=== PATIENT | female | born 1950 | race African-American/Black ===

== ENCOUNTER → 2017-02-21 | Outpatient (CLI) | payer BC, MEDICARE ==
--- NOTE | 2017-02-21 12:41 | RAD ---
PROCEDURE MRI lumbar spine without contrast. HISTORY Low back pain and bilateral radiculopathy for 7 months, symptoms greater on the left. No known injury or prior surgery. TECHNIQUE Sagittal T1, sagittal T2, sagittal STIR, axial T1, and axial T2 sequences are provided. COMPARISON October 12, 2014. FINDINGS There is 3 millimeters of anterolisthesis at L3-L4 and 4 millimeters at L4-L5. There is mild marrow heterogeneity but no discrete worrisome marrow lesion. There is probably a hemangioma at L4. There is disc desiccation from L2-L3 through L5-S1. The conus medullaris is normal in signal intensity and in position. Subcutaneous edema is mild. The numbering system assumes 5 lumbar type vertebral bodies. Findings by individual level are as follows: L1-L2: There is no canal or foraminal compromise. L2-L3: There is a mild disc bulge and marked facet hypertrophy. Midline AP diameter of the thecal sac is narrowed to 7-8 millimeters. There is lateral recess narrowing, greater on the right. Foraminal narrowing is moderate on the right and mild to moderate on the left. L3-L4: In addition to the anterolisthesis there is a diffuse disc bulge and there is facet hypertrophy. There is ligamentum flavum hypertrophy on the right. Canal stenosis is noted, midline AP diameter of the thecal sac 6-7 millimeters. Lateral recess narrowing is bilateral, greater on the right. Foraminal narrowing is moderate. Spur on the left contacts the exiting nerve root. L4-L5: There is marked facet hypertrophy and there is ligamentum flavum hypertrophy. In addition to the anterolisthesis midline AP diameter of the thecal sac is narrowed to 8 millimeters. There is lateral recess narrowing, greater on the right. Foraminal narrowing is [id number]. L5-S1: Disc osteophyte complex and facet hypertrophy are noted, without canal or foraminal compromise. IMPRESSION Degenerative changes in the lumbar spine with canal stenosis greatest at L3-L4. Several levels of moderate foraminal narrowing. Electronically signed by: Jw Ritter MD (Feb 21, 2017 12:39:56)
== END | disposition home or self-care (01) ==
LOC: MRI 10:15
PROVIDERS: ATTEND Orthopaedic Surgery
DX: M48.06 Spinal stenosis, lumbar region (principal); M43.16 Spondylolisthesis, lumbar region; M47.816 Spondylosis without myelopathy or radiculopathy, lumbar region; E11.9 Type 2 diabetes mellitus without complications
CPT/HCPCS: 72148

== ENCOUNTER → 2017-03-15 | Outpatient (CLI) | payer MEDICARE, OTHER ==
[~2017-03-15] MED LIST: AMLO10TA2 PO; CRESTOR10 MG PO; IOHEXOL 180 MG/ML 10 ML VIAL. ONE; MELO-150 PO; NAPR220C4 PO; methylPREDNISolone ACETATE 40 MG/ML VIAL. ONE; methylPREDNISolone ACETATE 80 MG/ML VIAL. ONE
--- NOTE | 2017-03-16 00:46 | PAIN ---
DATE OF SERVICE: 03/15/2017 INITIAL CONSULTATION FOR PAIN CLINIC CHIEF COMPLAINT: Low back and bilateral lower extremity pain. HISTORY OF PRESENT ILLNESS: This is a 67-year-old female who presents with history of pain in low back, bilateral lower extremities, worse on the left than the right for about 2 years, increased over the past 3-4 months, worse with activity, standing, walking. Pain across the low back, again worse on the left side radiating to the posterior gluteus, posterior thighs, into the calves bilaterally, it is a constant pain, it is cramping and aching. The patient reports that it started gradually, was not a result of any specific injury or accident that she is aware of. This has been going on for about 2 years now, getting worse over the past few months. The patient reports it awakens her from sleep at least 2-3 times at night, does not affect her bowel or bladder control, but does affect her ability to walk. She has been using a cane mostly in her left hand when ambulating. The patient has tried physical therapy. She is also doing some exercises which she is currently doing. She has tried etodolac as well as meloxicam, which both have helped the pain by about 20%, but not completely relieved. The patient continues to do therapy once again with exercises at home. She did have an MRI scan of the lumbar spine dated 02/21/2017 showing L3-L4 with ligamentum flavum hypertrophy, canal stenosis noted with midline AP diameter of thecal sac at 6-7 mm, lateral recess narrowing bilaterally, greater on the right; foraminal narrowing moderate. L4-L5 shows marked facet hypertrophy and AP diameter of the thecal sac ____ 8 mm with lateral recess narrowing greater on the right, foraminal narrowing mild to moderate, L5-S1 shows disk osteophyte complex and facet hypertrophy without canal or foraminal compromise at that level. The patient reports no loss of motor function, but significant pain in the low back, especially in the lower extremities, again worse on the left than the right. The pain is worse with standing, walking, changing positions from sitting. Sitting seems to help the pain as is lying down, but there is still when she lies on her left side, awakens her from sleep at night as noted. PAST MEDICAL HISTORY: Significant for hypertension, diabetes which is diet controlled, history of blood clots in 2014, arthritis. PREVIOUS SURGERY: Include hysterectomy in 1977 and cholecystectomy, ovarian cystectomy, right knee surgery and left hip surgery in the past. CURRENT MEDICATIONS: Include naproxen, amlodipine, Crestor, and meloxicam. ALLERGIES: No known drug allergies. FAMILY HISTORY: Significant for arthritis and heart disease. SOCIAL HISTORY: The patient is , has one child, lives at home. Does not drink alcohol, does not smoke and lives locally in [place], [place]. REVIEW OF SYSTEMS: The patient's review of systems is positive for those items mentioned in history of present illness. All systems reviewed and otherwise negative. It is complete, full and well documented on the patient's chart. PHYSICAL EXAMINATION: VITAL SIGNS: Today, the patient's blood pressure 149/80, pulse 77, respirations 18, temperature 98.4 degrees Fahrenheit. Height is 5 feet 7 inches, weighs 260 pounds. GENERAL: The patient is awake, alert, oriented, appropriate, very pleasant demeanor. HEENT: Head shows normocephalic, atraumatic. Extraocular movements are intact and symmetrical. Oral cavity shows mucous membranes moist and pink. Dentition is intact. NECK: Shows anterior throat supple without palpable lymphadenopathy noted. Swallow reflex is symmetrical. Neck shows full rotational motion of cervical spine, both laterally greater than 45 degrees, closer to 90 degrees right and left lateral as well as full extension and full forward flexion without difficulty or pain reported. CHEST: Shows normal on inspection. Breath sounds are clear to auscultation bilaterally. HEART: Shows S1 and S2 clear. No murmurs are auscultated. ABDOMEN: Soft, nontender, nondistended. No palpable organomegaly is noted. No rebound or guarding demonstrated. BACK: Shows spine grossly in midline with normal appearing thoracic and lumbar lordotic curvatures. No previous bruises, lesions, rashes or scars are noted. With inspection lumbar paraspinous muscle shows symmetrical. With palpation shows some moderate tenderness with palpation in the middle and lower distribution of paraspinous muscles, but without radiation. No tenderness over the spinous processes. No tenderness over the sacrum or sacroiliac regions bilaterally. LOWER EXTREMITIES: Show deep tendon reflexes at 1+ in the patellar and tendo calcaneus tendons are equal. Motor exam is approximately 4 on a scale of 5 with dorsiflexion, extension, quadriceps and hamstring flexion, but is symmetrical and equal bilaterally. Peripheral pulses are 1+ posterior tibial and dorsalis pedis pulses. No peripheral edema is noted. No clubbing, no cyanosis. Lower extremities are warm and dry to touch, equal in color and appearance. Straight leg raise noted to be negative for reproduction of radicular symptoms to 45 degrees bilaterally. Gaenslen's and Pavel's maneuvers are negative for reproduction of pain bilaterally as well. The patient is able to stand, stand on her toes without significant difficulty or loss of balance, walking with a normal appearing gait, not using any assistive devices to ambulate currently. Again, the patient occasionally has a cane that she uses when she is going further distances, but does not need this today. IMPRESSION: 1. This is a 67-year-old female with approximately 2-year history of increasing low back, bilateral lower extremity pain, worse on the left than the right, worse over the past several months. 2. MRI scan of lumbar spine as noted. 3. History of hypertension. 4. Borderline diabetes. 5. History of arthritis. PLAN: Options were discussed with the patient including conservative medical management, physical therapy, interventional techniques and she would like to pursue interventional techniques since she is doing some current exercises and stretching and has had some therapy in the past. We discussed the lumbar epidural steroid injection using description as well as anatomical models to describe the procedure. Risks were then discussed including, but not limited to bleeding, infection, possibility of epidural hematoma and subsequent neurologic compromise, dural puncture, headaches, spinal cord and/or nerve damage, side effects of steroid medications and poor results regarding pain control. The patient understands and wishes to proceed. The patient will return to clinic in approximately 2 weeks for followup, was counseled on return appointment, activity level and side effects to be aware of. DIAGNOSES: Lumbar radiculopathy with lumbar degenerative disk disease. PROCEDURE: Lumbar epidural steroid injection, translaminar approach at the L4-L5 level using C-arm fluoroscopic guidance under sterile prep and drape using local anesthetic. MEDICATIONS INJECTED: A 120 mg of Depo-Medrol plus 10 mL of preservative-free normal saline and 2 mL of Isovue for contrast. CONDITION AT DISCHARGE: Stable. The patient tolerated procedure well, had no complications. JOSE ANTONIO AMBROCIO MD DR: Irma JOB#: [id number] / [id number]
== END | disposition home or self-care (01) ==
LOC: PNCL 07:35
PROVIDERS: ATTEND Anesthesiology
DX: M51.16 Intervertebral disc disorders with radiculopathy, lumbar region (principal); M19.90 Unspecified osteoarthritis, unspecified site; I10 Essential (primary) hypertension
CPT/HCPCS: 62323; J1030; J1040

== ENCOUNTER → 2017-05-23 | Outpatient (CLI) | payer MEDICARE ==
[~2017-05-23] MED LIST changes: -MELO-150 PO; +MELO15TA23 PO
== END | disposition home or self-care (01) ==
LOC: PNCL 08:58
PROVIDERS: ATTEND Anesthesiology
DX: M51.16 Intervertebral disc disorders with radiculopathy, lumbar region (principal); M19.90 Unspecified osteoarthritis, unspecified site; I10 Essential (primary) hypertension; E11.9 Type 2 diabetes mellitus without complications; Z90.710 Acquired absence of both cervix and uterus; Z90.49 Acquired absence of other specified parts of digestive tract
CPT/HCPCS: 62323; J1030; J1040

== ENCOUNTER → 2017-06-20 | Outpatient (CLI) | payer MEDICARE ==
--- NOTE | 2017-06-20 11:26 | PAIN ---
DATE OF SERVICE: 06/20/2017 DIAGNOSES: Lumbar radiculopathy with lumbar degenerative disk disease. HISTORY OF PRESENT ILLNESS: The patient is a 67-year-old female who returns for followup status post lumbar epidural steroid injection x 2. The patient reports approximately 80% improvement after the second injection, but it did not last as long as the first injection did; first injection lasted a couple of months, this one lasted only one month. The patient reports the pain is increasing down in the low back, bilateral lower extremities; worse on the left than the right in the back, but equal in legs. The patient reports this is worse when walking. It can be sharp, cramping, rates as 8 on a scale of 10 at its worst, 5 at its average, and 4 at its least. The patient reports as a 4 on a scale of 10 today. The patient reports it does not awaken her from sleep; however, she feels much better with lying down or sitting down, has not started physical therapy; however, we discussed this and we will get that ordered for her. The patient reports no new motor or sensory deficits, no new bowel or bladder incontinence or other complaints. PHYSICAL EXAMINATION: VITAL SIGNS: The patient's blood pressure is 150/93, pulse 91, respirations are 18, temperature is 98.5 degrees Fahrenheit, height is 5 feet 7 inches, weighs 253 pounds. GENERAL: The patient is awake, alert, oriented, appropriate, very pleasant demeanor. HEENT: Head shows normocephalic, atraumatic. Extraocular movements intact, symmetrical. Oral cavity, mucous membranes are moist and pink. Dentition is intact. NECK: Shows anterior throat supple without palpable lymphadenopathy noted. Swallow reflex is symmetrical. CHEST: Shows normal on inspection. Breath sounds are clear to auscultation bilaterally. HEART: Shows S1 and S2 clear. ABDOMEN: Obese, soft, nontender, nondistended. BACK: Shows spine grossly midline. Lumbar paraspinous muscle shows symmetrical on inspection with palpation, shows some moderate tenderness, but only diffusely. No lower lumbar distribution bilaterally and is symmetrical. EXTREMITIES: Lower extremities showed deep tendon reflexes 1+ in the patellar and tendo calcaneus tendons. Motor exam is approximately 4 on a scale of 5, but equal and symmetrical with dorsiflexion, extension, quadriceps, and hamstring flexion bilaterally. PLAN: Options were discussed with the patient and the patient's old chart was reviewed. Her current medication regimen updated. Current review of systems updated today as well. We will proceed with the lumbar epidural steroid injections, third in the series, with fluoroscopic guidance. Risks were again discussed including, but not limited to bleeding, infection, possibility of epidural hematoma and subsequent neurologic compromise, dural puncture, headaches, spinal cord and/or nerve damage, side effects of steroid medication and poor results regarding pain control. The patient understands and wishes to proceed. The patient will return to clinic in approximately 2 weeks for followup, was counseled on return appointment, activity level and side effects to be aware of. DIAGNOSIS: Lumbar radiculopathy with lumbar degenerative disk disease. PROCEDURES: Lumbar epidural steroid injection in translaminar approach at L4-L5 level using C-arm fluoroscopic guidance, under sterile prep and drape using local anesthetic. MEDICATION INJECTED: A total of 120 mg Depo-Medrol plus 10 mL of preservative-free normal saline and 2 mL Isovue for contrast. CONDITION AT DISCHARGE: Stable. The patient tolerated procedure well, had no complications. JOSE ANTONIO AMBROCIO MD DR: JUSTICE/scar JOB#: [id number] / [id number]
== END | disposition home or self-care (01) ==
LOC: PNCL 09:08
PROVIDERS: ATTEND Anesthesiology
DX: M51.16 Intervertebral disc disorders with radiculopathy, lumbar region (principal)
CPT/HCPCS: 62323; J1030; J1040

== ENCOUNTER 2020-04-23 15:31 | Observation (INO) | payer OTHER, MEDICARE ==
[~2020-04-23] VITALS: Ht 170.2 cm; Wt 113.0 kg
[~2020-04-23 15:31] MED LIST changes: -AMLO10TA2 PO; +AMLO10TA8 PO; -IOHEXOL 180 MG/ML 10 ML VIAL. ONE; -methylPREDNISolone ACETATE 40 MG/ML VIAL. ONE; -methylPREDNISolone ACETATE 80 MG/ML VIAL. ONE
[2020-04-23] MEDS ORDERED: diazePAM 2 MG TABLET PO ONE (16:00)
--- NOTE | 2020-04-23 16:30 | RAD ---
Right elbow 2 views. HISTORY: Pain 2 views were taken of the right elbow. There is osteoarthritis at the elbow with joint space narrowing. There is a probable joint body anterior to the joint. There is hypertrophic spurring. There is no acute fracture. There is possible calcific tendinitis adjacent to the medial distal humerus. IMPRESSION: 1. Osteoarthritis right elbow. Electronically signed by: Marco Antonio Miller MD (04/23/2020 4:27 PM) [id number]
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
[2020-04-23] MEDS ORDERED: oxyCODONE/APAP 5/325 1 TAB TABLET PO ONE (17:30)
[2020-04-23 18:04] LABS: BILIRUBIN,URINE NEGATIVE (NEG); CLARITY,URINE CLEAR; COLOR,URINE YELLOW; NITRITE,URINE NEGATIVE (NEG); PROTEIN,URINE NEGATIVE (NEG-TRACE); UROBILINOGEN,URINE 0.2 mg/dL (0.2 mg/dL)
[2020-04-23 18:12] LABS: BACTERIA,URINE 0 /HPF (0-FEW); RBC,URINE 0 /HPF (0-2); SQUAMOUS EPITHELIAL CELL,UR MOD /LPF; WBC,URINE OCC /HPF (0-4)
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
[2020-04-23 18:39] LABS: BASO % 0 % (0-3); EOS # 0.1 x10^3/uL (0.0-0.7); EOS % 2 % (0-3); HEMATOCRIT 45.2 % (36.0-47.0); HEMOGLOBIN 15.1 g/dL (12.0-15.5); LYMPH # 2.4 x10^3/uL (1.0-4.8); LYMPH % 30 % (24-48); MEAN CORPUSCULAR HEMOGLOBIN 30 pg (25-35); MEAN CORPUSCULAR HGB CONC 33 g/dL (31-37); MEAN CORPUSCULAR VOLUME 89 fL (79-100); MONO # 0.4 x10^3/uL (0.0-1.1); MONO % 5 % (0-9); NEUT # 4.9 x10^3/uL (1.8-7.7); NEUT % 62 % (31-73); PLATELET COUNT 281 x10^3/uL (140-400); RED BLOOD COUNT 5.09 x10^6/uL (3.50-5.40); RED CELL DISTRIBUTION WIDTH 14.1 % (11.5-14.5); WHITE BLOOD COUNT 7.9 x10^3/uL (4.0-11.0)
[2020-04-23 18:53] LABS: CALCIUM 9.1 mg/dL (8.5-10.1); CREATININE 0.9 mg/dL (0.6-1.0); GFR 75.3; POTASSIUM 3.7 mmol/L (3.5-5.1)
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
[2020-04-23 20:13] VITALS: BP 143/73
--- NOTE | 2020-04-23 20:15 | NUR ---
Call placed to Dr. Scott regarding orders.
[2020-04-23] MEDS ORDERED: oxyCODONE/APAP 5/325 1 TAB TABLET PO PRN (21:45)
[2020-04-23] MEDS ORDERED: ENOXAPARIN 40 MG/0.4 ML SYRINGE. SQ SCH (22:00)
[2020-04-23] MEDS ORDERED: ATORVASTATIN CALCIUM 40 MG TABLET. PO SCH (22:00)
[2020-04-23] MEDS ORDERED: IV NORMAL SALINE 1000ML BAG 1,000 ML IV SCH (22:00)
[2020-04-23] MEDS: NAPROXEN 250 MG TABLET PO SCH (22:20)
[2020-04-23] MEDS: oxyCODONE/APAP 5/325 1 TAB TABLET PO PRN (22:20)
[2020-04-23 23:00] VITALS: BP 137/54
[2020-04-24 03:02] VITALS: BP 128/67
[2020-04-24 07:25] VITALS: BP 135/68
--- NOTE | 2020-04-24 07:27 | NUR ---
Consult called to Dr. Damon's service at [phone]. Message left with Jeimy at service who stated she would notify Jenniffer GUNDERSON.
--- NOTE | 2020-04-24 07:30 | NUR ---
Call returned from Jenniffer GUNDERSON who spoke with ER doctor and stated Per xray results there would be nothing that they would do. Report given to Nisha ROONEY.
[2020-04-24] MEDS: NAPROXEN 250 MG TABLET PO SCH (08:40)
[2020-04-24] MEDS: oxyCODONE/APAP 5/325 1 TAB TABLET PO PRN ×2 (08:57→13:07)
[2020-04-24] MEDS ORDERED: amLODIPine BESYLATE 10 MG TABLET PO SCH (09:00)
[2020-04-24 10:40] VITALS: BP 154/84
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
== END 2020-04-24 13:30 | disposition home or self-care (01) ==
LOC: ER 15:31 → 4 NORTH 18:25
PROVIDERS: ADMIT Internal Medicine; ATTEND Internal Medicine
DX: S32.019A Unspecified fracture of first lumbar vertebra, initial encounter for closed fracture (principal); S32.029A Unspecified fracture of second lumbar vertebra, initial encounter for closed fracture; S32.039A Unspecified fracture of third lumbar vertebra, initial encounter for closed fracture; M25.562 Pain in left knee; M25.521 Pain in right elbow; E11.9 Type 2 diabetes mellitus without complications; E78.00 Pure hypercholesterolemia, unspecified; E78.5 Hyperlipidemia, unspecified; I10 Essential (primary) hypertension; Z96.659 Presence of unspecified artificial knee joint; Z96.641 Presence of right artificial hip joint; V89.2XXA Person injured in unspecified motor-vehicle accident, traffic, initial encounter; Y93.89 Activity, other specified; Y92.410 Unspecified street and highway as the place of occurrence of the external cause; Y99.8 Other external cause status
CPT/HCPCS: 36415; 72131; 73070; 73564; 80048; 81001; 85025; 96372; 97161; 97530; 99284; G0378; J1650; J7030; G0379

== ENCOUNTER → 2020-08-02 | Outpatient (CLI) | payer OTHER, MEDICARE ==
[~2020-08-02] MED LIST changes: +HYDR-2761 PO; +IOHEXOL 180 MG/ML 10 ML VIAL. ONE; +METF500T16 PO; +methylPREDNISolone ACETATE 40 MG/ML VIAL. ONE; +methylPREDNISolone ACETATE 80 MG/ML VIAL. ONE
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
== END | disposition home or self-care (01) ==
LOC: PNCL 09:48
PROVIDERS: ATTEND Anesthesiology
DX: M51.36 Other intervertebral disc degeneration, lumbar region (principal); E11.9 Type 2 diabetes mellitus without complications; I10 Essential (primary) hypertension; M19.90 Unspecified osteoarthritis, unspecified site; Z79.84 Long term (current) use of oral hypoglycemic drugs; Z83.3 Family history of diabetes mellitus; Z79.899 Other long term (current) drug therapy; Z90.710 Acquired absence of both cervix and uterus; Z96.652 Presence of left artificial knee joint; Z96.642 Presence of left artificial hip joint
CPT/HCPCS: 62323; J1030; J1040; Q9965

== ENCOUNTER → 2020-08-18 | Outpatient (CLI) | payer OTHER, MEDICARE ==
[~2020-08-18] MED LIST changes: +AMLO-187 PO; -AMLO10TA8 PO; -IOHEXOL 180 MG/ML 10 ML VIAL. ONE; -methylPREDNISolone ACETATE 40 MG/ML VIAL. ONE; -methylPREDNISolone ACETATE 80 MG/ML VIAL. ONE
--- NOTE | 2020-08-18 11:52 | PDOC ---
Progress Note - Pain Clinic Date of Service: DOS: DATE: 08/18/20 TIME: 11:49 Diagnosis: Dx: Lumbar radiculopathy with lumbar degenerative disc disease History or Present Illness: HPI: 70-year-old female returns for follow-up status post lumbar epidural steroid action x1. Patient reports about 65% improvement in her low back and left lower extremity pain still pain in the leg and noticeable but much better with walking standing changing positions patient is been increase her distance walking doing household activities with greater ease and comfort sleeping much better comfort as well. Patient reports the pain is now just aching radiating the posterior gluteus posterior lateral thigh lateral anterior thigh on the left side only and again only intermittently and not present at all times like it was previously. Patient rates her pain as a 5 on a scale 10 is worst when she is walking 4-5 an average 3 in the mornings at its least and is a 4 today. Patient reports no new motor or sensory deficits no new bowel or bladder incontinence or other complaints. Physical Exam: VS: Blood pressure is 149/92 pulse 83 respirations 18 temperature 90.5 F weight is 238 pounds PE: PHYSICAL EXAMINATION: GENERAL: The patient is awake, alert, oriented, appropriate, very pleasant demeanor HEENT: Shows normocephalic, atraumatic. Extraocular movements are intact and s ymmetrical. Oral cavity: Mucous membranes moist and pink. NECK: Shows anterior throat supple without palpable lymphadenopathy noted. Swallow reflex symmetrical. CHEST: Shows normal on inspection. Breath sounds are clear bilaterally. HEART: Shows S1, S2 clear. No murmurs auscultated. ABDOMEN: Soft, nontender, nondistended, obese. No palpable organomegaly is noted. No rebound or guarding demonstrated. BACK: Shows spine grossly in the midline. Normal-appearing cervical lordotic curvature. There is slightly increased thoracic kyphosis, some minor flattening of the lumbar lordotic curvature. Lumbar paraspinous muscles show symmetrical on inspection, on palpation shows some moderate tenderness diffusely throughout the upper, middle and lower distribution of the paraspinous muscles bilaterally, without specific trigger points, without radiation of pain. The patient has good rotational motion of the lumbar spine, both laterally as well as extension and flexion without significant difficulty. No tenderness over the spinous processes, sacrum or sacroiliac regions. EXTREMITIES: Lower extremities show deep tendon reflexes 1+ in the patellar and tendo calcaneus tendons. Motor exam is 4 on a scale of 5 with right dorsiflexion, extension, quadriceps and hamstring flexion and 4/5 on the left. Peripheral pulses are 1+ posterior tibial. No peripheral edema is noted bilaterally. Lower extremities are warm and dry to touch, equal in color and appearance. SKIN: Shows warm and dry, good turgor. No edema. No sores, rashes or bruising throughout. Procedure: Procedure: Options are discussed with the patient. Patient's old chart was reviewed as her current medication regimen updated current review of systems updated today as well. We will hold on any further injections at this time patient is doing quite a bit better and would like to wait on any further injections. Patient was encouraged to maintain activity walking consistent exercise and stretching with the low back and legs. Patient will return to clinic at this time on as- needed basis. Medication Injected: Med Injected: None Condition at Discharge: Condition at Discharge: Condition at discharge is stable JOSE ANTONIO AMBROCIO MD Aug 18, 2020 11:52
== END ==
LOC: PNCL 11:05
PROVIDERS: ATTEND Anesthesiology
DX: M51.16 Intervertebral disc disorders with radiculopathy, lumbar region (principal); I10 Essential (primary) hypertension; E11.9 Type 2 diabetes mellitus without complications; E78.5 Hyperlipidemia, unspecified; E78.00 Pure hypercholesterolemia, unspecified; Z79.899 Other long term (current) drug therapy; Z82.49 Family history of ischemic heart disease and other diseases of the circulatory system; Z83.3 Family history of diabetes mellitus; Z79.84 Long term (current) use of oral hypoglycemic drugs
CPT/HCPCS: G0463